=== PATIENT | male | born 1960 | race Two or more races ===

== ENCOUNTER 2016-09-23 19:24 | Emergency (ER) | payer SELFPAY ==
[~2016-09-23] VITALS: Ht 152.4 cm; Wt 113.4 kg
[2016-09-23 19:40] VITALS: BP 155/80
[2016-09-23] MEDS ORDERED: IBUPROFEN 600 MG TAB PO ONE (21:30)
== END 2016-09-23 21:54 | disposition home or self-care (01) ==
LOC: ER 19:31
DX: S86.911A Strain of unspecified muscle(s) and tendon(s) at lower leg level, right leg, initial encounter (principal); M17.11 Unilateral primary osteoarthritis, right knee; X50.0XXA Overexertion from strenuous movement or load, initial encounter; Y93.89 Activity, other specified; Y99.8 Other external cause status; Y92.89 Other specified places as the place of occurrence of the external cause
CPT/HCPCS: 73562